=== PATIENT | female | born 1970 | race Caucasian/White ===

== ENCOUNTER 2021-12-22 08:19 | Emergency (ER) | payer OTHER, SELFPAY ==
[2021-12-22] VITALS (10 sets, daily range): BP systolic 122–169; BP diastolic 74–92; PULSE 61–77; RESP 12–23; TEMP 36.8; O2SAT 98–100; BMI 27.7
--- NOTE | 2021-12-22 08:31 | DI.RAD.S_ITS ---
PROCEDURE: XR CHEST 1V INDICATIONS: chest pain TECHNIQUE: One view of the chest was acquired. COMPARISON: None. FINDINGS: Surgical changes and devices: None. Lungs and pleura: Lungs are clear. No pleural effusions or pneumothorax. Mediastinum: Mediastinal contours appear normal. Heart size is normal. Bones and chest wall: No suspicious bony lesions. Overlying soft tissues appear unremarkable. IMPRESSION: No acute cardiopulmonary abnormality. Dictated by: Maik Howard M.D. on 12/22/2021 at 9:00 Approved by: Maik Howard M.D. on 12/22/2021 at 9:01
--- NOTE | 2021-12-22 09:05 | ED_ITS ---
HPI - Chest Pain General Chief Complaint: Chest Pain Stated Complaint: Chest Pain Time Seen by Provider: 12/22/21 08:31 History of Present Illness HPI narrative: Patient is a 51-year-old healthy female who presents with near syncopal episode today. She states she was driving to work who has been a normal morning for her she got extremely lightheaded she had some chest discomfort felt like her body was not working like it should. She pulled over the side of the road and called her . She then reclined in the backseat she try to eat something. Feeling a bit better now. EMS never report any hypotension. She did not really feel her heart racing. She just felt like she was off lightheaded she had some tunnel vision. She does not typically eat breakfast still little later in the morning. She has not traveled anywhere no history of blood clots. She has no numbness tingling weakness. Overall feeling a bit better now that she is in the ED. Related Data Allergies Allergy/AdvReac Type Severity Reaction Status Date / Time bupropion Allergy Verified 12/22/21 09:00 [From Wellbutrin SR] Review of Systems Review of Systems Narrative: GENERAL: Denies chills, fatigue, malaise, fever, sweats, travel HEENT: Denies sinus pain, ear pain, sore throat, difficulty swallowing, neck pain RESPIRATORY: Denies dyspnea, cough, wheezing, hemoptysis, sputum. CARDIOVASCULAR: See HPI GASTROINTESTINAL: Denies nausea, vomiting, abdominal pain, diarrhea, constipation, melena. : Denies dysuria, frequency, incontinence, hematuria, urinary retention, flank pain. MUSCULOSKELETAL: Denies weakness, joint pain, or bony pain SKIN: No rash, no erythema, no pruritus NEUROLOGIC: + lightheadedness, see HPI Denies weakness, dizziness, headache, numbness, change in speech, confusion PSYCHIATRIC: No concerning psychosocial issues. 12 point review of systems is negative except for those stated above and HPI Patient History Social History Smoking Status: Former smoker Exam Initial Vital Signs Initial Vital Signs: Vital Signs Temperature 98.2 F 12/22/21 08:19 Pulse Rate 77 12/22/21 08:19 Respiratory Rate 22 12/22/21 08:19 Blood Pressure 169/86 H 12/22/21 08:19 Pulse Oximetry 99 12/22/21 08:19 Oxygen Delivery Method 12/22/21 08:19 GENERAL: Well-appearing, well-nourished and in no acute distress. HEENT: Head atraumatic,EOMI, pupils reactive, face symmetric, moist mucous membranes CARDIOVASCULAR: Regular rate and rhythm without murmurs, rubs or gallops. RESPIRATORY: Breath sounds equal bilaterally, no wheezes rales or rhonchi. ABDOMEN: Soft, nontender. Normoactive bowel sounds all 4 quadrants. No gua rding or rebound. EXTREMITIES: Normal range of motion, no clubbing or edema. Neurovascularly intact NEUROLOGICAL: Alert and oriented x4.Normal gait and speech. SKIN: Warm, dry, no laceration, no petechiae, no rashes or lesions. Scores HEART Score Heart Score history: Slightly Suspicious Heart Score EKG: Normal Heart Score Age: 45-64 years old Heart Score risk factors: No known risk factors Heart Score troponin: < or = to normal limit Heart Score Total: 1 Course Orders Ordered: ED Orders 12/22/21 11:00 Trop I [Troponin I] Stat Discontinued Medications Sodium Chloride (Normal Saline 0.9%) 1,000 mls @ 1,000 mls/hr IV BOLUS ONE Stop: 12/22/21 10:05 Last Infusion: 12/22/21 10:43 Dose: 0 mls/hr Documented By: Admin: 12/22/21 09:24 Dose: 1,000 mls/hr Documented By: ADITYA Vital Signs Vital signs: Vital Signs - 8 hr 12/22/21 11:38 Blood Pressure 122/75 MDM - Chest Pain Lab Data Result diagrams: 12/22/21 08:55 12/22/21 08:55 Labs: Lab Results 12/22/21 12/22/21 12/22/21 Range/Units 08:55 08:55 11:00 WBC 3.1 L (4.5-11.0) X10^3/uL RBC 4.92 (4.0-5.2) X10^6/uL Hgb 14.6 (12.0-16.0) g/dL Hct 42.5 (36-46) % MCV 86.4 (80-100) fL MCH 29.8 (26-34) PG MCHC 34.4 (30-36) % RDW 12.2 (11.6-14.8) % Plt Count 146 L (150-400) X10^3/uL Neut % (Auto) 56.8 (50-75) % Lymph % (Auto) 32.7 (25-40) % [place] % (Auto) 9.2 (3-14) % Eos % (Auto) 0.6 L (2-4) % Baso % (Auto) 0.7 (0-2) % Neut # (Auto) 1700 (6453-0425) /uL Lymph # (Auto) 1000 L (6313-6227) /uL [place] # (Auto) 300 (0-900) /uL Eos # (Auto) 0 (0-450) /uL Baso # (Auto) 0 (0-100) /uL Sodium 136 L (137-145) mmol/L Potassium 3.9 (3.4-5.1) mmol/L Chloride 100 (98-107) mmol/L Carbon Dioxide 24 (22-32) mmol/L BUN 7 (7-17) mg/dL Creatinine 0.64 (0.52-1.04) mg/dL Estimated GFR > 60 (>60) mL/min BUN/Creatinine Ratio 10.9 (6-22) Glucose 105 H (70-100) mg/dL Calcium 9.5 (8.4-10.2) mg/dL Magnesium 1.9 (1.6-2.3) mg/dL Total Bilirubin 1.0 (0.2-1.3) mg/dL AST 22 (14-36) IU/L ALT 15 (<35) IU/L Alkaline Phosphatase 61 (38-126) U/L Total Creatine Kinase 59 (30-135) U/L CK-MB (CK-2) TNP CK-MB (CK-2) Rel Index TNP Troponin I < 0.012 < 0.012 (0.01-0.034) ng/mL Total Protein 7.4 (6.3-8.2) g/dL Albumin 4.7 (3.5-5.0) g/dL Globulin 2.7 (1.7-4.1) g/dL Albumin/Globulin Ratio 1.7 (1.0-2.8) Lipase 73 (23-300) U/L Imaging Data Chest x-ray: Radiologist's Impression: ent: Jenny Aaron MR#: [id number] : 1970 Acct:[id number] Age/Sex: 51 / F Date of Service: 12/22/21 Loc: ED Accession Number: [id number] ?? Procedure: XR chest 1V Ordering Provider: Mary Amador D.O. PROCEDURE:? XR CHEST 1V ? INDICATIONS:? chest pain ? TECHNIQUE:? One view of the chest was acquired.? ? COMPARISON:? None. ? FINDINGS:? ? Surgical changes and devices:? None.? ? Lungs and pleura:? Lungs are clear.? No pleural effusions or pneumothorax.? ? Mediastinum:? Mediastinal contours appear normal.? Heart size is normal.? ? Bones and chest wall:? No suspicious bony lesions.? Overlying soft tissues appear unremarkable.? ? IMPRESSION:? No acute cardiopulmonary abnormality. ? ? ? Dictated by: Maik Howard M.D. on 12/22/2021 at 9:00 ? ? ECG Data Interpretation: Normal sinus rhythm rate 73 ME interval 186 QRS [address] changes no T- wave MDM Narrative Medical decision making narrative: Patient has some atypical chest pain. Sounds almost presyncopal. 2- troponins. Normal EKG. Pre sound more like vasovagal like. Blood pressure has been stable here in the ED. Symptoms have completely resolved. She is noted to to have slightly low WBC count of 3.1. Patient states that this is actually chronic. This is not new. She has no infectious symptoms. She has an appointment with a new PCP the next week. Discharge Plan Departure Patient Disposition: Home Clinical Impression: Atypical chest pain, Vasovagal episode Instructions: DI for Syncope in Adults (Fainting), DI for Atypical Chest Pain Activity Restrictions/Additional Instructions: *You have been diagnosed with atypical chest pain, near syncope *What to do: At this time blood work is overall reassuring. To do to drink fluids any regularly throughout the day today. *Continue to take medications as directed *Follow up with your primary care provider in 2-3 days or call [phone] *Return to ER if you should have worsening chest discomfort palpitations shortness of breath lightheadedness weakness numbness tingling or any new, worsening or concerning symptoms Visit Report Forms: Patient Portal/API
[2021-12-22 09:14] LABS: Add Manual Diff / Slide Review NO; Basophils Absolute Auto 0 /uL (0-100); Basophils Percent Auto 0.7 % (0-2); Eosinophils Absolute Auto 0 /uL (0-450); Eosinophils Percent Auto 0.6 % (2-4); Hematocrit 42.5 % (36-46); Hemoglobin 14.6 g/dL (12.0-16.0); Lymphocytes Absolute Auto 1000 /uL (1100-4500); Lymphocytes Percent Auto 32.7 % (25-40); Mean Corpuscular HGB Conc 34.4 % (30-36); Mean Corpuscular Hemoglobin 29.8 PG (26-34); Mean Corpuscular Volume 86.4 fL (80-100); Monocytes Absolute Auto 300 /uL (0-900); Monocytes Percent Auto 9.2 % (3-14); Neutrophils Absolute Auto 1700 /uL (1500-7000); Neutrophils Percent Auto 56.8 % (50-75); Platelet Count 146 X10^3/uL (150-400); Red Blood Cell Count 4.92 X10^6/uL (4.0-5.2); Red Cell Distribution Width 12.2 % (11.6-14.8); White Blood Cell Count 3.1 X10^3/uL (4.5-11.0)
[2021-12-22 09:20] LABS: Alanine Aminotransferase 15 IU/L (<35); Albumin 4.7 g/dL (3.5-5.0); Albumin Globulin Ratio 1.7 (1.0-2.8); Alkaline Phosphatase 61 U/L (38-126); Aspartate Aminotransferase 22 IU/L (14-36); BUN Creatinine Ratio 10.9 (6-22); Blood Urea Nitrogen 7 mg/dL (7-17); Calcium 9.5 mg/dL (8.4-10.2); Carbon Dioxide 24 mmol/L (22-32); Chloride 100 mmol/L (98-107); Creatine Kinase 59 U/L (30-135); Estimated Glomerular Filt Rate > 60 mL/min (>60); Globulin 2.7 g/dL (1.7-4.1); Glucose 105 mg/dL (70-100); HEMOLYSIS < 15 (0-50); Lipase 73 U/L (23-300); Magnesium 1.9 mg/dL (1.6-2.3); Potassium 3.9 mmol/L (3.4-5.1); Sodium 136 mmol/L (137-145); Total Protein 7.4 g/dL (6.3-8.2)
[2021-12-22] MEDS: SODIUM CHLORIDE 0.9% 1,000 ML 1000 ML IV (09:24)
[2021-12-22 09:32] LABS: Troponin I < 0.012 ng/mL (0.01-0.034)
[2021-12-22 11:30] LABS: Troponin I < 0.012 ng/mL (0.01-0.034)
== END 2021-12-22 11:46 | disposition home or self-care (01) ==
PROVIDERS: Emergency Provider Emergency Medicine
DX: R07.89 Other chest pain (principal); R55 Syncope and collapse
CPT/HCPCS: 36415; 71045; 80053; 82550; 83690; 83735; 84484; 85025; 93005; 93010; 99284

== ENCOUNTER → 2022-06-01 13:42 | Outpatient (CLI) | payer OTHER, SELFPAY ==
[2022-06-01 14:35] LABS: Add Manual Diff / Slide Review NO; Basophils Absolute Auto 0 /uL (0-100); Basophils Percent Auto 0.7 % (0-2); Eosinophils Absolute Auto 0 /uL (0-450); Eosinophils Percent Auto 0.4 % (2-4); Hematocrit 42.5 % (36-46); Hemoglobin 14.7 g/dL (12.0-16.0); Lymphocytes Absolute Auto 1100 /uL (1100-4500); Lymphocytes Percent Auto 28.7 % (25-40); Mean Corpuscular HGB Conc 34.6 % (30-36); Mean Corpuscular Hemoglobin 29.7 PG (26-34); Mean Corpuscular Volume 85.9 fL (80-100); Monocytes Absolute Auto 300 /uL (0-900); Monocytes Percent Auto 7.7 % (3-14); Neutrophils Absolute Auto 2300 /uL (1500-7000); Neutrophils Percent Auto 62.5 % (50-75); Platelet Count 161 X10^3/uL (150-400); Red Blood Cell Count 4.95 X10^6/uL (4.0-5.2); Red Cell Distribution Width 12.2 % (11.6-14.8); White Blood Cell Count 3.7 X10^3/uL (4.5-11.0)
[2022-06-01 15:38] LABS: Alanine Aminotransferase 17 IU/L (<35); Albumin 4.7 g/dL (3.5-5.0); Albumin Globulin Ratio 1.8 (1.0-2.8); Alkaline Phosphatase 60 U/L (38-126); Aspartate Aminotransferase 19 IU/L (14-36); BUN Creatinine Ratio 11.3 (6-22); Bilirubin Total 0.9 mg/dL (0.2-1.3); Blood Urea Nitrogen 7 mg/dL (7-17); Calcium 9.5 mg/dL (8.4-10.2); Carbon Dioxide 27 mmol/L (22-32); Chloride 97 mmol/L (98-107); Cholesterol 226 mg/dL (140-199); Estimated Glomerular Filt Rate > 60 mL/min (>60); Globulin 2.6 g/dL (1.7-4.1); Glucose 91 mg/dL (70-100); HDL Cholesterol 63 mg/dL (40-60); HEMOLYSIS < 15 (0-50); LDL Cholesterol Calculated 148 mg/dL (<100); Potassium 3.7 mmol/L (3.4-5.1); Sodium 135 mmol/L (137-145); Total Protein 7.3 g/dL (6.3-8.2); Triglycerides 75 mg/dL (35-150)
[2022-06-01 16:06] LABS: TSH w/ Reflex to FT4 1.26 uIU/mL (0.47-4.68)
== END ==
PROVIDERS: Referring Provider Registered Nurse; Visit Provider Registered Nurse
DX: F41.9 Anxiety disorder, unspecified (principal); R55 Syncope and collapse
CPT/HCPCS: 36415; 80053; 80061; 84443; 85025

== ENCOUNTER → 2022-06-02 12:40 | Outpatient (CLI) | payer OTHER, SELFPAY ==
--- NOTE | 2022-06-02 | DI.ECHO.S_ITS ---
[facility] +---------+ : : [address] : : : : [id number] : : : : Phone: [phone] Echocardiogram Report + + :Name: LIANG TANNER Study Date: 06/02/2022 Height: 69 in : :[facility] ReadingLocation: Weight: 184 lb : : Gender: Female BSA: 2.0 m2 : :: 1970 Age: 51 yrs BP: 141/68 mmHg: :Reason For Study: Syncope and collapse : :Ordering Physician: YOVANI, : :SHARON Performed By: Pastora Macdonald : :Referring: SHARON PINA : + + Interpretation Summary The left ventricle is normal in size and wall thickness. The ejection fraction is estimated to be 60-65%. The right ventricle is normal size. The right ventricular systolic function is normal. No significant valvular pathology seen. Mild atherosclerotic plaque(s) in the aortic arch. The IVC is of normal diameter and collapses greater than 50% with a sniff. This suggests a low right atrial pressure of 3 mm Hg. In parasternal long axis and short axis view anterior to right ventricle there is a echolucent space as well as echogenic space. Most likely anterior fat pad however small pericardial effusion cannot be ruled out. No echocardiographic evidence of cardiac tamponade. Procedure: A two-dimensional transthoracic echocardiogram with color flow and Doppler was performed. The study quality was technically adequate. The patient was in sinus rhythm with heart rates between 65-70 bpm during the exam. Left Ventricle: The left ventricle is normal in size and wall thickness. There is no thrombus. The ejection fraction is estimated to be 60-65%. There are no focal wall motion abnormalities. Diastolic parameters suggest a relaxation abnormality of the left ventricle, consistent with probable normal filling pressures. Right Ventricle: The right ventricle is normal size. The right ventricular systolic function is normal. Atria: The left atrial size is normal. Right atrial size is normal. A prominent eustachian valve is noted. There is no Doppler evidence for an atrial septal defect. Mitral Valve: The mitral valve is normal in structure and function. There is mild mitral regurgitation. Aortic Valve: The aortic valve is normal in structure and function. The aortic valve is trileaflet. There is no aortic valve stenosis. No aortic regurgitation is present. Tricuspid Valve: The tricuspid valve is normal in structure and function. There is trace tricuspid regurgitation. The right ventricular systolic pressure is estimated to be at least 24.7 mmHg based on an estimated right atrial pressure of 3 mm Hg. Pulmonic Valve: The pulmonic valve leaflets are thin and pliable; valve motion is normal. There is a trace or physiologic amount of pulmonic regurgitation. Great Vessels: The aortic root is normal size. Mild atherosclerotic plaque (s) in the aortic arch. The IVC is of normal diameter and collapses greater than 50% with a sniff. This suggests a low right atrial pressure of 3 mm Hg. Pericardium/ Pleura There is no pericardial effusion. There is an anterior echo-free space consistent with a fat pad. In parasternal long axis and short axis view anterior to right ventricle there is a echolucent space as well as echogenic space. Most likely anterior fat pad however small pericardial effusion cannot be ruled out. No echocardiographic evidence of cardiac tamponade. There is no pleural effusion. MMode/2D Measurements & Calculations LVIDd: 4.7 cm LVOT diam: 2.0 cm LVIDs: 2.7 cm Ao root diam: 2.7 cm FS: 42.4 % asc Aorta Diam: 2.8 cm EPSS: 0.12 cm Ao Arch Diam (Prox Trans): 2.9 cm IVSd: 0.76 cm LVPWd: 0.80 cm LV arreaga. diameter/BSA (cm/m^2): 2.4 LV sys. diameter/BSA (cm/m^2): 1.4 LA A2 area: 20.1 cm2 RA long axis: 4.9 cm LA A4 area: 20.5 cm2 RA area: 17.9 cm2 LA length (vol): 5.9 cm RA vol: 55.6 ml LA vol: 59.3 ml RA : 27.9 ml/m2 LA vol index: 29.7 ml/m2 RVD1 (basal): 3.8 cm TAPSE: 2.2 cm Doppler Measurements & Calculations Ao V2 max: 135.4 cm/sec LVOT Max Martínez: 112.2 cm/sec Ao V2 mean: 99.8 cm/sec LV V1 max P.0 mmHg Ao max P.3 mmHg LV V1 VTI: 25.6 cm Ao mean P.3 mmHg YANCY(I,D): 2.7 cm2 Ao V2 VTI: 30.0 cm YANCY(V,D): 2.6 cm2 sev ratio: 0.85 YANCY indexed to BSA (cm^2/m^2): 1.4 MV E max martínez: 68.4 cm/sec TR max martínez: 233.1 cm/sec MV A max martínez: 78.1 cm/sec TR max P.7 mmHg MV E/A: 0.88 PA V2 max: 90.6 cm/sec Med Peak E' Martínez: 7.9 cm/sec PA V2 mean: 70.6 cm/sec E/E' med: 8.6 PA mean P.1 mmHg Lat Peak E' Martínez: 11.9 cm/sec E/E' lat: 5.8 E/e' average: 7.2 MV dec time: 0.22 sec MVA(VTI): 3.1 cm2 MV V2 mean: 56.0 cm/sec SV(LVOT): 81.6 ml MV mean P.4 mmHg MV V2 VTI: 26.6 cm Reading Physician:03:09 PM
== END ==
PROVIDERS: PCP Internal Medicine; Referring Provider Registered Nurse; Visit Provider Registered Nurse
DX: I70.0 Atherosclerosis of aorta (principal); R55 Syncope and collapse; R07.89 Other chest pain; I34.0 Nonrheumatic mitral (valve) insufficiency
CPT/HCPCS: 93306

== ENCOUNTER 2022-07-10 08:22 | Emergency (ER) | payer OTHER, SELFPAY ==
[2022-07-10] VITALS (9 sets, daily range): BP systolic 139–187; BP diastolic 72–91; PULSE 65–102; RESP 14–20; TEMP 36.6; O2SAT 98–100; BMI 26.6
--- NOTE | 2022-07-10 08:38 | DI.RAD.S_ITS ---
PROCEDURE: XR CHEST 1V INDICATIONS: chest pain TECHNIQUE: One view of the chest was acquired. COMPARISON: [facility], CR, XR CHEST 1V, 12/22/2021, 8:40. FINDINGS: Surgical changes and devices: None. Lungs and pleura: Lungs are clear. No pleural effusions or pneumothorax. Mediastinum: Mediastinal contours appear normal. Heart size is normal. Bones and chest wall: No suspicious bony lesions. Overlying soft tissues appear unremarkable. IMPRESSION: No evidence acute pulmonary process. Dictated by: Cheo Steele M.D. on 07/10/2022 at 9:21 Approved by: Cheo Steele M.D. on 07/10/2022 at 9:22
--- NOTE | 2022-07-10 08:39 | ED_ITS ---
HPI - Arrhythmia/Palpitations General Chief Complaint: Dizziness Stated Complaint: BP high/weak/N/ Time Seen by Provider: 07/10/22 08:30 History of Present Illness HPI narrative: Patient is a healthy 51-year-old female who presents with a near syncopal episode. This is the 3rd or 4th episode she is had over last 6 months. Today she was standing in the kitchen talking to her daughter on the phone she got really sweaty her heart was beating fast and she felt like her blood pressure w as high. She did not pass out but she needs to sit down. No numbness tingling or weakness. Slightly nauseous but no vomiting. Last night she was noticing some right upper chest pain. Previously she is been worked up for this including a ZIO patch however no event was found during that time. Previously she was driving she got very lightheaded she was able to picker/puller. Another time in May she had a similar episode but was diagnosed with COVID. She denies any infectious symptoms today. No fever chills nausea or vomiting. Pain on the right side of her chest she noticed last night. It does not seem to be moving not necessarily reproducible with touch. She is an appointment with cardiology but not for couple of months. She was started on Lexapro 4 days ago by her PCP to help rule out or treat any anxiety. She says previously she was on metoprolol but that lowered her heart rate too much and she did not tolerated. Related Data Previous Rx's Medication Instructions Recorded metoprolol succinate 25 mg 12.5 mg PO DAILY #30 tabs 07/10/22 tablet,extended release 24 hr Allergies Allergy/AdvReac Type Severity Reaction Status Date / Time bupropion Allergy Verified 12/22/21 09:00 [From Wellbutrin SR] Review of Systems Review of Systems ROS Unobtainable: All systems reviewed & are unremarkable except as noted in HPI and below Patient History Social History Smoking Status: Former smoker Smoking Status: Former smoker tobacco type: cigarettes alcohol intake frequency: 0-2 drinks per day Substance Use Type: does not use Exam Initial Vital Signs Initial Vital Signs: Vital Signs Temperature 98 F 07/10/22 08:30 Pulse Rate 84 07/10/22 08:30 Respiratory Rate 18 07/10/22 08:30 Blood Pressure 187/91 H 07/10/22 08:30 Pulse Oximetry 100 07/10/22 08:30 Oxygen Delivery Method 07/10/22 08:30 GENERAL: alert pleasant 51-year-old female slightly anxious and in no acute distress. HEENT: Head atraumatic,EOMI, pupils reactive, face symmetric, moist mucous membranes CARDIOVASCULAR: Regular rate and rhythm without murmurs, rubs or gallops. RESPIRATORY: Breath sounds equal bilaterally, no wheezes rales or rhonchi. ABDOMEN: Soft, nontender. Normoactive bowel sounds all 4 quadrants. No guarding or rebound. EXTREMITIES: Normal range of motion, no clubbing or edema. Neurovascularly intact NEUROLOGICAL: Alert and oriented x4.Normal gait and speech. Cranial nerves II through XII grossly intact. Good [id number], good drug-jz-xzws, strength equal bilaterally, no dysarthria or aphasia, sensation in tact to soft touch bilaterally, no visual changes, no facial droop SKIN: Warm, dry, no laceration, no petechiae, no rashes or lesions. Course Orders Ordered: ED Orders 07/10/22 09:51 EKG-12 Lead Routine Discontinued Medications Sodium Chloride (Normal Saline 0.9%) 1,000 mls @ 1,000 mls/hr IV BOLUS ONE Stop: 07/10/22 10:27 Last Infusion: 07/10/22 10:58 Dose: 0 mls/hr Documented By: Admin: 07/10/22 09:30 Dose: 1,000 mls/hr Documented By: ANALIA Vital Signs Vital signs: Vital Signs - 8 hr 07/10/22 11:00 Pulse Rate 71 Respiratory Rate 14 Pulse Oximetry 99 MDM - Arrhythmia/Palpitations Lab Data Result diagrams: 07/10/22 08:35 07/10/22 08:35 Labs: Lab Results 07/10/22 07/10/22 07/10/22 Range/Units 08:35 08:35 08:35 WBC 3.3 L (4.5-11.0) X10^3/uL RBC 4.88 (4.0-5.2) X10^6/uL Hgb 14.6 (12.0-16.0) g/dL Hct 42.2 (36-46) % MCV 86.4 (80-100) fL MCH 29.9 (26-34) PG MCHC 34.6 (30-36) % RDW 12.3 (11.6-14.8) % Plt Count 135 L (150-400) X10^3/uL Neut % (Auto) 61.1 (50-75) % Lymph % (Auto) 26.8 (25-40) % [place] % (Auto) 10.7 (3-14) % Eos % (Auto) 0.6 L (2-4) % Baso % (Auto) 0.8 (0-2) % Neut # (Auto) 2000 (0520-0483) /uL Lymph # (Auto) 900 L (0171-6695) /uL [place] # (Auto) 400 (0-900) /uL Eos # (Auto) 0 (0-450) /uL Baso # (Auto) 0 (0-100) /uL D-Dimer < 215 (<500) ng/ml Sodium 134 L (137-145) mmol/L Potassium 3.6 (3.4-5.1) mmol/L Chloride 95 L (98-107) mmol/L Carbon Dioxide 26 (22-32) mmol/L BUN 9 (7-17) mg/dL Creatinine 0.60 (0.52-1.04) mg/dL Estimated GFR > 60 (>60) mL/min BUN/Creatinine Ratio 15.0 (6-22) Glucose 112 H (70-100) mg/dL Calcium 9.5 (8.4-10.2) mg/dL Total Bilirubin 0.8 (0.2-1.3) mg/dL AST 21 (14-36) IU/L ALT 21 (<35) IU/L Alkaline Phosphatase 56 (38-126) U/L Total Creatine Kinase 40 (30-135) U/L CK-MB (CK-2) TNP CK-MB (CK-2) Rel Index TNP Troponin I < 0.012 (0.01-0.034) ng/mL Total Protein 7.7 (6.3-8.2) g/dL Albumin 4.8 (3.5-5.0) g/dL Globulin 2.9 (1.7-4.1) g/dL Albumin/Globulin Ratio 1.7 (1.0-2.8) Lipase 97 (23-300) U/L Point of Care Testing Test Results Negative Urine Dip Bedside Urine Glucose Negative Bedside Urine Bilirubin - Negative Bedside Urine Ketone - Negative Urine Specific [place] 1.005 Bedside Urine Occult Blood +/- Bedside Urine pH 6.0 Bedside Urine Protein - Negative Bedside Urine Urobilinogen - Negative Bedside Urine Nitrite - Negative Bedside Urine Leukocytes - Negative Esterase Imaging Data Chest x-ray: Radiologist's Impresson: Patient: Jenny Aaron MR#: [id number] : 1970 Acct:[id number] Age/Sex: 51 / F Date of Service: 07/10/22 Loc: ED Accession Number: [id number] ?? Procedure: XR chest 1V Ordering Provider: Mary Amador D.O. PROCEDURE:? XR CHEST 1V ? INDICATIONS:? chest pain ? TECHNIQUE:? One view of the chest was acquired.? ? COMPARISON:? [facility], , XR CHEST 1V, 12/22/2021, 8:40. ? FINDINGS:? ? Surgical changes and devices:? None.? ? Lungs and pleura:? Lungs are clear.? No pleural effusions or pneumothorax.? ? Mediastinum:? Mediastinal contours appear normal.? Heart size is normal.? ? Bones and chest wall:? No suspicious bony lesions.? Overlying soft tissues appe ar unremarkable.? ? IMPRESSION:? No evidence acute pulmonary process. ? ? ? Dictated by: Cheo Steele M.D. on 07/10/2022 at 9:21 ? ? Approved by: Cheo Steele M.D. on 07/10/2022 at 9:22 ? ECG Data Interpretation: Normal sinus rhythm rate 72 [place] interval 186 QRS [address] changes no T- wave inversions similar to previous EKGs EKG 2. Sinus rhythm rate [address] changes similar to previous MDM Narrative Medical decision making narrative: Patient is a 51-year-old female who has had palpitations and near syncopal episodes a couple times over last 6 months. She is an appointment with cardiology but not until September 05. Today she was standing in her kitchen talking on the phone when she felt her heart racing. It lasts for only a couple of seconds. She recently started Lexapro but reports that it actually feels like it is helping her anxiety. Blood work today is overall reassuring she is a negative D-dimer negative troponin electrolytes are within normal limits. She has a stable WBC count of 3.3. She is no infectious symptoms. She is already had a ZIO patch for 13-14 days which did not show any abnormality according to her. She also had an echocardiogram 05/29/2022 which showed a normal EF and no other abnormalities. I suspect that she is having sort of arrhythmia. It is not necessarily consistent does not seem to last long. She felt like she was having another episode in the ED heart rate went up to [address] Holguin return phone call after patient was discharge. She was able to review the ZIO patch results from March there does appear to be runs of SVT possibly V-tach and atrial tachycardia. Recommended a beta-cindy. We did discuss how beta cindy with a tolerated while at 25 mg decrease the dose to 12-,/2. I called patient after she was discharged discuss this plan she is agr eeable to it I have sent in metoprolol for her at local pharmacy. Dr. Holguin will work on getting her into Cardiology sooner. [] Multiple etiologies for patient's symptoms considered including, but not limited to: Cardiac arrhythmia, tachycardia, pulmonary embolism, acute coronary syndrome Prior Charts reviewed: Previous ED visits Labs reviewed and interpreted by myself: As above Imaging reviewed: As above Consultations: With PCP for more urgent Cardiology follow-up Patient's symptoms improved over duration of stay with above-stated therapies. Findings and discharge diagnosis discussed with patient/family followed by verbalization of understanding Return precautions discussed with patient/family whom verbalize understanding of diagnosis and plan Discharge Plan Departure Patient Disposition: Home Clinical Impression: Palpitations Instructions: DI for Palpitations Activity Restrictions/Additional Instructions: *You have been diagnosed with palpitations *What to do: At this time you need another ZIO patch and follow-up with cardiology. If you should experience this again please call 911 and return to the emergency department. I also recommend getting some sort of wrist heart monitoring device to help keep track of how fast her heart rate is going. *Continue to take medications as directed *Follow up with your primary care provider in 2-3 days or call [phone] *Return to ER if you should have increasing palpitations passing out dizziness weakness or any new, worsening or concerning symptoms Prescriptions: New metoprolol succinate 25 mg tablet extended release 24 hr 12.5 mg PO DAILY Qty: 30 0RF Referrals: Magalie Will ARNP [Primary Care Provider] - Stand Alone Forms: Patient Portal/API
[2022-07-10 08:57] LABS: Add Manual Diff / Slide Review NO; Basophils Absolute Auto 0 /uL (0-100); Basophils Percent Auto 0.8 % (0-2); Eosinophils Absolute Auto 0 /uL (0-450); Eosinophils Percent Auto 0.6 % (2-4); Hematocrit 42.2 % (36-46); Hemoglobin 14.6 g/dL (12.0-16.0); Lymphocytes Absolute Auto 900 /uL (1100-4500); Lymphocytes Percent Auto 26.8 % (25-40); Mean Corpuscular HGB Conc 34.6 % (30-36); Mean Corpuscular Hemoglobin 29.9 PG (26-34); Mean Corpuscular Volume 86.4 fL (80-100); Monocytes Absolute Auto 400 /uL (0-900); Monocytes Percent Auto 10.7 % (3-14); Neutrophils Absolute Auto 2000 /uL (1500-7000); Neutrophils Percent Auto 61.1 % (50-75); Platelet Count 135 X10^3/uL (150-400); Red Blood Cell Count 4.88 X10^6/uL (4.0-5.2); Red Cell Distribution Width 12.3 % (11.6-14.8); White Blood Cell Count 3.3 X10^3/uL (4.5-11.0)
[2022-07-10 09:04] LABS: D Dimer < 215 ng/ml (<500)
[2022-07-10 09:07] LABS: Alanine Aminotransferase 21 IU/L (<35); Albumin 4.8 g/dL (3.5-5.0); Albumin Globulin Ratio 1.7 (1.0-2.8); Alkaline Phosphatase 56 U/L (38-126); Aspartate Aminotransferase 21 IU/L (14-36); Bilirubin Total 0.8 mg/dL (0.2-1.3); Blood Urea Nitrogen 9 mg/dL (7-17); Calcium 9.5 mg/dL (8.4-10.2); Carbon Dioxide 26 mmol/L (22-32); Chloride 95 mmol/L (98-107); Creatine Kinase 40 U/L (30-135); Estimated Glomerular Filt Rate > 60 mL/min (>60); Globulin 2.9 g/dL (1.7-4.1); Glucose 112 mg/dL (70-100); HEMOLYSIS < 15 (0-50); Lipase 97 U/L (23-300); Potassium 3.6 mmol/L (3.4-5.1); Sodium 134 mmol/L (137-145); Total Protein 7.7 g/dL (6.3-8.2)
[2022-07-10 09:19] LABS: Troponin I < 0.012 ng/mL (0.01-0.034)
[2022-07-10] MEDS: SODIUM CHLORIDE 0.9% 1,000 ML 1000 ML IV (09:30)
--- NOTE | 2022-07-10 09:47 | PC.NURSE ---
pt has episode of dizzy heart racing while supine in bed with ns bolus infusion running, ekg called and md notified.
--- NOTE | 2022-07-10 09:58 | PC.NURSE ---
asked for nutrition, checked with dr. chilel and gave the ok. offered half turkey sandwich.
== END 2022-07-10 11:12 | disposition home or self-care (01) ==
PROVIDERS: Emergency Provider Emergency Medicine; PCP Registered Nurse
DX: R00.2 Palpitations (principal); R07.9 Chest pain, unspecified
CPT/HCPCS: 36415; 71045; 80053; 81003; 81025; 82550; 83690; 84484; 85025; 85379; 93005; 99284

== ENCOUNTER → 2023-02-08 07:49 | Outpatient (CLI) | payer OTHER, SELFPAY ==
--- NOTE | 2023-02-08 16:18 | DI.NM.S_ITS ---
DATE OF SERVICE: 02/08/2023 PROCEDURE: Exercise treadmill stress test without imaging. ORDERING PROVIDER: Sourav Gordon MD. INDICATIONS: The patient is a 52-year-old female with a history of SVT, chest discomfort, and syncope. FINDINGS: 1. The patient was able to exercise for 10 minutes, 10 seconds on a standard John protocol suggesting very good exercise capacity with an SUZI of -34%, achieving 12.8 METs. 2. She had a normal heart rate response to exercise, achieving a maximum heart rate of 172 BPM (103% of her predicted maximum). She had a mild hypertensive blood pressure response to exercise with a resting blood pressure of 120/80 increasing to a maximum of 208/80. 3. She had no chest discomfort or other anginal symptoms. 4. Her resting ECG shows sinus rhythm with normal ST segments. There are no significant ST-segment shifts with exercise. She had rare PVCs, rarely in couplets, with exercise and occasional PACs, occasionally in couplets in recovery, but no other complex ectopy. IMPRESSION: 1. Normal exercise stress test for ischemia. 2. Very good exercise capacity without angina. 3. She had occasional PVCs, rarely in couplets at high workload and occasional PACs, occasional couplets in recovery, but no sustained or complex arrhythmias. Jenny Aaron - NANCY/vera/mima doc#: [id number]/job#: [id number] dd: 02/08/2023 13:03:00 dt: 02/08/2023 16:09:00 DICTATING MD/COPIES TO: Jelani Alvarez MD; Sourav Gordon MD COPIES MNE: JONNY;
== END ==
PROVIDERS: PCP Registered Nurse; Referring Provider Internal Medicine Cardiovascular Disease; Visit Provider Internal Medicine Cardiovascular Disease
DX: R07.89 Other chest pain (principal); I47.1 Supraventricular tachycardia; R55 Syncope and collapse
CPT/HCPCS: 93017

== ENCOUNTER → 2023-02-23 10:19 | Outpatient (CLI) | payer OTHER, SELFPAY ==
[2023-02-23 12:32] LABS: Cholesterol 164 mg/dL (140-199); HDL Cholesterol 59 mg/dL (40-60); LDL Cholesterol Calculated 97 mg/dL (<100); Triglycerides 41 mg/dL (35-150)
== END ==
PROVIDERS: PCP Registered Nurse; Referring Provider Internal Medicine Cardiovascular Disease; Visit Provider Internal Medicine Cardiovascular Disease
DX: I70.90 Unspecified atherosclerosis (principal)
CPT/HCPCS: 36415; 80061

== ENCOUNTER → 2023-05-24 06:55 | Outpatient (CLI) | payer OTHER, SELFPAY ==
--- NOTE | 2023-05-24 | DI.ECHO.S_ITS ---
[facility] +---------+ : : [address] : : : : [id number] : : : : Phone: [phone]---------+ Echocardiogram Report + + :Name: LIANG TANNER Study Date: 05/24/2023 Height: 68.5 in: :[facility] ReadingLocation: Weight: 165 lb : : Gender: Female BSA: 1.9 m2 : :: 1970 Age: 52 yrs BP: 140/75 mmHg: :Reason For Study: PERICARDIAL EFFUSION : :Ordering Physician: MANN, : :KENDRA Performed By: Pastora Soliz : :Referring: KENDRA GORDON : + + Interpretation Summary Limited Echo: There is a trivial to small pericardial effusion noted. No significant change when compared to the echo done 06/02/2022. Procedure: A two-dimensional transthoracic echocardiogram with color flow and Doppler was performed in limited views only to assess pericardial effusion.. The study quality was technically good. Comparison is made with the echocardiogram of 06/02/2022. The patient was in sinus rhythm with heart rates between 72-78 bpm during the exam. Left Ventricle: The left ventricle is normal in size and wall thickness. The ejection fraction is estimated to be 65-70%. Right Ventricle: The right ventricle is normal size. Atria: The left atrial size is normal. Right atrial size is normal. There is no Doppler evidence for an interatrial shunt. Aortic Valve: The aortic valve is trileaflet. The aortic valve opens well. Tricuspid Valve: There is mild tricuspid regurgitation. The right ventricular systolic pressure is estimated to be at least 19 mmHg based on an estimated right atrial pressure of 3 mm Hg. Great Vessels: The IVC is of normal diameter and collapses greater than 50% with a sniff. This suggests a low right atrial pressure of 3 mm Hg. Pericardium/ Pleura There is a trivial to small pericardial effusion noted. There is no pleural effusion. MMode/2D Measurements & Calculations LVIDd: 4.8 cm LA A2 area: 20.2 cm2 LVIDs: 2.9 cm LA A4 area: 16.5 cm2 FS: 40.5 % LA length (vol): 5.3 cm IVSd: 0.89 cm LA vol: 53.8 ml LVPWd: 0.77 cm LA vol index: 28.4 ml/m2 LV arreaga. diameter/BSA (cm/m^2): 2.5 LV sys. diameter/BSA (cm/m^2): 1.5 RA long axis: 4.8 cm RVD1 (basal): 3.8 cm RA area: 17.7 cm2 RVD2 (mid): 2.4 cm RA vol: 55.6 ml RA : 29.3 ml/m2 IVC diam: 2.0 cm Doppler Measurements & Calculations TR max anamaria: 201.8 cm/sec TR max P.3 mmHg Reading Physician:02:20 PM
== END ==
PROVIDERS: PCP Registered Nurse; Referring Provider Internal Medicine Cardiovascular Disease; Visit Provider Internal Medicine Cardiovascular Disease
DX: I31.39 Other pericardial effusion (noninflammatory) (principal); I07.1 Rheumatic tricuspid insufficiency
CPT/HCPCS: 93307

== ENCOUNTER → 2023-08-22 16:15 | Outpatient (CLI) | payer OTHER, SELFPAY ==
--- NOTE | 2023-08-22 | DI.MG.S_ITS ---
BILATERAL DIGITAL SCREENING MAMMOGRAM 3D/2D WITH CAD: 08/22/2023 CLINICAL: Routine screening. No prior exams were available for comparison. There are scattered areas of fibroglandular density in both breasts (category b / 25%-50% glandular tissue). Current study was also evaluated with a Computer Aided Detection (CAD) system. No significant masses, calcifications, or other findings are seen in either breast. IMPRESSION: NEGATIVE There is no mammographic evidence of malignancy. A 1 year screening mammogram is recommended. Based on the Tyrer Cuzick model (a risk assessment model) the patient's lifetime risk is 8.3% and her 10 year risk is 2.4%. According to the ACR, ACS, and NCCN guidelines, an annual breast MRI exam along with mammogram is recommended if the patient's lifetime risk is 20% or greater. This exam was interpreted at Station ID: [id number]. NOTE: For mammograms, a report in lay terms will be sent to the patient. Approximately 15% of breast malignancies will not be visualized mammographically. In the management of a palpable breast mass, a negative mammogram must not discourage biopsy of a clinically suspicious lesion. Electronically Signed By: Bruno valdivia/anibal:08/23/2023 07:32:48 letter sent: Normal Exam ACR BI-RADS Category 1: Negative 3341F
== END ==
PROVIDERS: PCP Registered Nurse; Referring Provider Registered Nurse; Visit Provider Registered Nurse
DX: Z12.31 Encounter for screening mammogram for malignant neoplasm of breast (principal); R92.323 Mammographic fibroglandular density, bilateral breasts
CPT/HCPCS: 77063; 77067

== ENCOUNTER → 2024-11-19 07:34 | Outpatient (CLI) | payer BC, SELFPAY | LOC: LAB 07:34 | PROVIDERS: PCP Family Medicine; Visit Provider Nurse Practitioner Family | DX: J02.9 Acute pharyngitis, unspecified (principal) | CPT/HCPCS: 87070 ==

== ENCOUNTER → 2025-03-17 14:25 | Outpatient (CLI) | payer OTHER, SELFPAY ==
[2025-03-17 15:56] LABS: Alanine Aminotransferase 27 IU/L (<35); Albumin 4.7 g/dL (3.5-5.0); Albumin Globulin Ratio 2.0 (1.0-2.8); Alkaline Phosphatase 55 U/L (38-126); Blood Urea Nitrogen 16 mg/dL (7-17); Calcium 9.7 mg/dL (8.4-10.2); Carbon Dioxide 26 mmol/L (22-32); Chloride 100 mmol/L (98-107); Cholesterol 211 mg/dL (140-199); Estimated Glomerular Filt Rate > 60 mL/min (>60); Globulin 2.4 g/dL (1.7-4.1); Glucose 83 mg/dL (70-99); HDL Cholesterol 76 mg/dL (40-60); HEMOLYSIS < 15 (0-50); Potassium 4.2 mmol/L (3.4-5.1); Sodium 135 mmol/L (137-145); Total Protein 7.1 g/dL (6.3-8.2); Triglycerides 111 mg/dL (35-150)
[2025-03-17 15:59] LABS: Hemoglobin A1C% w Est Avg Glu 5.3 % (4.0-6.0)
== END ==
PROVIDERS: PCP Family Medicine; Referring Provider Family Medicine; Visit Provider Family Medicine
DX: Z00.00 Encounter for general adult medical examination without abnormal findings (principal); E78.5 Hyperlipidemia, unspecified; I10 Essential (primary) hypertension
CPT/HCPCS: 36415; 80053; 80061; 83036